=== PATIENT | female | born 1990 | race Hispanic/Latino ===

== ENCOUNTER 2022-03-03 08:13 | Emergency (ER) | payer OTHER ==
[~2022-03-03] VITALS: Ht 160 cm; Wt 82.1 kg
[~2022-03-03 08:13] MED LIST: CEPH500B PO; IBUP-2070 PO
[2022-03-03] MEDS ORDERED: PRED5TAB PO (08:39)
[2022-03-03] MEDS ORDERED: VALA10002 PO (08:39)
[2022-03-03 08:57] VITALS: BP 102/65
== END 2022-03-03 08:59 | disposition home or self-care (01) ==
LOC: EDH 08:13
DX: B02.9 Zoster without complications (principal); Z88.0 Allergy status to penicillin

== ENCOUNTER 2022-03-05 07:33 | Emergency (ER) | payer OTHER ==
[~2022-03-05] VITALS: Ht 160 cm; Wt 82.1 kg
[~2022-03-05 07:33] MED LIST changes: +PRED5TAB PO; +VALA10002 PO
[2022-03-05 07:36] VITALS: BP 121/77
[2022-03-05] MEDS ORDERED: TETRACAINE HCL 0.5% 4 ML OPHTH SOLN ONE (07:59)
[2022-03-05] MEDS ORDERED: FLUORESCEIN SODIUM 1 STRIP STRIP ONE (08:00)
[2022-03-05] MEDS ORDERED: TETRACAINE HCL 0.5% 15 ML OPHTH SOLN OP SCH (08:30)
[2022-03-05] MEDS ORDERED: FLUORESCEIN SODIUM 1 STRIP STRIP OP SCH (08:30)
[2022-03-05] MEDS ORDERED: GABA-533 PO (08:38)
[2022-03-05] MEDS ORDERED: MAXIOS OD (08:38)
== END 2022-03-05 09:00 | disposition home or self-care (01) ==
LOC: EDH 07:33
DX: B02.30 Zoster ocular disease, unspecified (principal); Z88.0 Allergy status to penicillin; Z79.899 Other long term (current) drug therapy

== ENCOUNTER 2022-03-19 02:33 | Observation (INO) | payer BC, OTHER ==
[~2022-03-19] VITALS: Ht 160 cm; Wt 82.1 kg
[2022-03-19] VITALS (21 sets, daily range): BP systolic 98–124; BP diastolic 58–87
[~2022-03-19 02:33] MED LIST changes: +GABA-533 PO; +MAXIOS OD
[2022-03-19] MEDS ORDERED: 0.9%NACL 1000ML 1,000 ML IV ONE (03:00)
[2022-03-19] MEDS ORDERED: ONDANSETRON 4MG INJ IVP ONE (03:00)
[2022-03-19] MEDS ORDERED: KETOROLAC 30MG VIAL (30MG/ML) IVP ONE (03:00)
[2022-03-19 03:34] LABS: BASOPHILS % (AUTO) 0.6 % (0.0-5.0); EOSINOPHILS % (AUTO) 1.5 % (0.0-8.0); HEMATOCRIT 38.9 % (36-48); LYMPHOCYTES % (AUTO) 36.1 % (21.0-51.0); MEAN CORPUSCULAR HEMOGLOBIN 31.3 pg (27.0-33.0); MEAN CORPUSCULAR HGB CONC 33.4 g/dL (32.0-36.0); MEAN CORPUSCULAR VOLUME 93.5 fL (79-99); MONOCYTES % (AUTO) 6.4 % (3.0-13.0); NEUTROPHILS % (AUTO) 55.3 % (40.0-77.0); PLATELET COUNT (AUTO) 229 K/uL (130-400); RED BLOOD CELL COUNT(AUTO) 4.16 MIL/uL (4.00-5.50); RED CELL DISTRIBUTION WIDTH 13.2 % (11.0-15.5); WHITE BLOOD COUNT (AUTO) 6.8 K/uL (4.8-10.8)
[2022-03-19 03:36] LABS: APPEARANCE,URINE CLEAR (CLEAR); BILIRUBIN,URINE NEGATIVE (NEGATIVE); COLOR,URINE LIGHT-YELLOW (YELLOW); GLUCOSE, URINE (UA) NEGATIVE (NEGATIVE); KETONES,URINE NEGATIVE (NEGATIVE); LEUKOCYTE ESTERASE ,URINE NEGATIVE Leu/uL (NEGATIVE); NITRATE,URINE NEGATIVE (NEGATIVE); OCCULT BLOOD,URINE NEGATIVE (NEGATIVE); PROTEIN,URINE NEGATIVE (NEGATIVE); UROBILINOGEN,URINE 0.2 mg/dL (0.2-1.0)
[2022-03-19 03:37] LABS: HCG,QUALITATIVE URINE NEGATIVE (NEGATIVE)
[2022-03-19] MEDS ORDERED: MORPHINE 4 MG SYG ONE (03:51)
[2022-03-19 03:52] LABS: CREATININE 0.8 mg/dL (0.5-1.5); POTASSIUM 3.4 mmol/L (3.5-5.1)
[2022-03-19 03:56] LABS: ALBUMIN 3.5 g/dL (3.5-5.0); TOTAL PROTEIN, SERUM 7.2 g/dL (6.0-8.3)
[2022-03-19] MEDS ORDERED: MORPHINE 4 MG SYG IVP ONE ×2 (04:00→04:30)
[2022-03-19] MEDS ORDERED: CEFTRIAXONE 1G VIAL IVP ONE (04:30)
[2022-03-19] MEDS ORDERED: HYDROMORPHONE 1 MG INJ IV PRN (05:00)
[2022-03-19] MEDS ORDERED: POTASSIUM CHLORIDE 10% ELIXIR 20 MEQ/15 ML UDCUP PO PRN (05:00)
[2022-03-19] MEDS ORDERED: POTASSIUM CHLORIDE 20MEQ/100ML 100 ML IV PRN (05:00)
[2022-03-19] MEDS ORDERED: MORPHINE 2 MG SYG IV PRN ×2 (05:00→09:30)
[2022-03-19] MEDS ORDERED: LIDOCAINE HCL-MPF 1% 2ML VIAL IV PRN (05:00)
[2022-03-19] MEDS ORDERED: ONDANSETRON 4MG INJ IV PRN (05:00)
[2022-03-19] MEDS: METRONIDAZOLE 500MG/100ML BAG 100 ML IVPB SCH ×5 (06:00→21:46)
[2022-03-19] MEDS: LEVOFLOXACIN 500 MG/D5W 100 ML 100 ML IV SCH (06:01)
[2022-03-19] MEDS: LACTATED RINGERS 1000ML 1,000 ML IV SCH ×2 (06:03→11:05)
[2022-03-19] MEDS ORDERED: BUPIVACAINE/PF 0.5% 30ML VIAL ONE (06:49)
[2022-03-19] MEDS ORDERED: ONDANSETRON 4MG INJ ONE (08:04)
[2022-03-19] MEDS ORDERED: SUCCINYLCHOLINE 200MG/10ML SYR ONE (08:04)
[2022-03-19] MEDS ORDERED: MIDAZOLAM HCL 1 MG/ML 2ML VIAL ONE (08:04)
[2022-03-19] MEDS ORDERED: GLYCOPYRROLATE 1 MG/5 ML SYRINGE ONE (08:04)
[2022-03-19] MEDS ORDERED: LIDOCAINE PF 100MG/5ML (2%) SYRINGE 5ML ONE (08:04)
[2022-03-19] MEDS ORDERED: PROPOFOL 10 MG/ML 20ML VIAL IV ONE (08:04)
[2022-03-19] MEDS ORDERED: NEOSTIGMINE 5MG/5ML SYR IV ONE (08:04)
[2022-03-19] MEDS ORDERED: DEXAMETHASONE SOD PHOSPHATE 10MG/ML 1ML VIAL ONE (08:04)
[2022-03-19] MEDS ORDERED: FENTANYL CITRATE PF 50 MCG/1 ML 2ML VIAL ONE ×2 (08:05→10:04)
[2022-03-19] MEDS ORDERED: ROCURONIUM 10MG/1ML SYR 10 MG/ML ML ONE (08:05)
[2022-03-19] MEDS: ENOXAPARIN SODIUM 40 MG/0.4 ML SYRINGE SQ SCH (09:00)
[2022-03-19] MEDS ORDERED: KETOROLAC 30MG VIAL (30MG/ML) ONE (09:03)
[2022-03-19] MEDS ORDERED: MEPERIDINE-PF 25 MG/ML SYG ONE ×2 (09:13→09:39)
[2022-03-19] MEDS ORDERED: ONDANSETRON 4MG INJ IVP PRN (09:30)
[2022-03-19] MEDS ORDERED: ACET-2079 PO (09:30)
[2022-03-19] MEDS ORDERED: ACETAMINOPHEN 325 MG TAB PO PRN (09:30)
[2022-03-19] MEDS ORDERED: ACETAMINOPHEN 650 MG SUPPOSITORY RC PRN (09:30)
[2022-03-19] MEDS ORDERED: LACTATED RINGERS 1000ML 1,000 ML IV SCH (09:30)
[2022-03-19] MEDS: FAMOTIDINE 20MG VIAL IV SCH ×2 (11:16→21:47)
[2022-03-19] MEDS: KCL 20 MEQ ERTAB PO PRN (13:41)
[2022-03-19] MEDS: HYDROCODONE/ACETAMINOPHEN 5/325 MG TAB PO PRN ×2 (16:25→22:03)
[2022-03-20 03:21] VITALS: BP 116/72
[2022-03-20] MEDS: HYDROCODONE/ACETAMINOPHEN 5/325 MG TAB PO PRN ×2 (04:06→12:39)
[2022-03-20] MEDS: LEVOFLOXACIN 500 MG/D5W 100 ML 100 ML IV SCH (04:33)
[2022-03-20] MEDS: METRONIDAZOLE 500MG/100ML BAG 100 ML IVPB SCH (05:51)
[2022-03-20 06:48] LABS: HEMATOCRIT 34.7 % (36-48); MEAN CORPUSCULAR HEMOGLOBIN 31.1 pg (27.0-33.0); MEAN CORPUSCULAR HGB CONC 32.6 g/dL (32.0-36.0); MEAN CORPUSCULAR VOLUME 95.6 fL (79-99); RED BLOOD CELL COUNT(AUTO) 3.63 MIL/uL (4.00-5.50); RED CELL DISTRIBUTION WIDTH 13.2 % (11.0-15.5); WHITE BLOOD COUNT (AUTO) 8.6 K/uL (4.8-10.8)
[2022-03-20 07:04] LABS: CREATININE 0.7 mg/dL (0.5-1.5); MAGNESIUM 2.1 mg/dL (1.80-2.40); POTASSIUM 3.6 mmol/L (3.5-5.1)
[2022-03-20 07:33] VITALS: BP 112/60
[2022-03-20] MEDS: FAMOTIDINE 20MG VIAL IV SCH (08:21)
[2022-03-20] MEDS: ENOXAPARIN SODIUM 40 MG/0.4 ML SYRINGE SQ SCH (08:21)
[2022-03-20] MEDS: KCL 20 MEQ ERTAB PO PRN (08:22)
[2022-03-20 12:29] VITALS: BP 111/72
[2022-03-20] MEDS ORDERED: BISACODYL 10 MG SUPP.RECT RC PRN (14:00)
[2022-03-20 16:40] VITALS: BP 100/65
== END 2022-03-20 17:55 | disposition home or self-care (01) ==
LOC: EDH 02:33 → INTOOBSV 04:56 → EDHIP 04:56 → WSH 10:45
PROVIDERS: ADMIT Internal Medicine; ATTEND Internal Medicine
DX: K81.0 Acute cholecystitis (principal); Z20.822 Contact with and (suspected) exposure to COVID-19; E87.6 Hypokalemia; Z79.899 Other long term (current) drug therapy; Z98.890 Other specified postprocedural states
CPT/HCPCS: 47562; 96376 ×2; 96365; 96366 ×2; 96375; 96368; 99284; 80053; 83690; 85025; 81003; 81025; 36415 ×2; 87635; 76705; 96372; 83735; 80048; 85027; G0378 ×27; A4663; J7030; A4600 ×2; A4215; J3490 ×9; J3010 ×2; J0330; J1100; J2710; J1956 ×3; J2001; J0696; J2250; J2704; J2405 ×3; J2270 ×2; J1885 ×2; J2175 ×2; A6206; C1769 ×3; A4649 ×3; J1650

== ENCOUNTER 2022-07-13 18:23 | Emergency (ER) | payer BC ==
[~2022-07-13] VITALS: Ht 160 cm; Wt 83.0 kg
[~2022-07-13 18:23] MED LIST changes: +ACET-2079 PO
[2022-07-13 20:22] LABS: HCG,QUALITATIVE URINE NEGATIVE (NEGATIVE)
[2022-07-13] MEDS ORDERED: FLUCONAZOLE 100 MG TAB PO ONE (20:30)
[2022-07-13 21:57] VITALS: BP 125/81
[2022-07-13 22:05] LABS: APPEARANCE,URINE CLEAR (CLEAR); BILIRUBIN,URINE NEGATIVE (NEGATIVE); COLOR,URINE COLORLESS (YELLOW); GLUCOSE, URINE (UA) NEGATIVE (NEGATIVE); KETONES,URINE 10 mg/dL (NEGATIVE); LEUKOCYTE ESTERASE ,URINE NEGATIVE Leu/uL (NEGATIVE); NITRATE,URINE NEGATIVE (NEGATIVE); OCCULT BLOOD,URINE NEGATIVE (NEGATIVE); PH,URINE 6.5 (5.0-8.0); PROTEIN,URINE NEGATIVE (NEGATIVE); UROBILINOGEN,URINE 0.2 mg/dL (0.2-1.0)
[2022-07-14] MEDS ORDERED: FAMC500T8 PO (15:24)
== END 2022-07-13 22:22 | disposition home or self-care (01) ==
LOC: EDH 18:23
DX: B37.31 Acute candidiasis of vulva and vagina (principal); Z88.0 Allergy status to penicillin; Z79.52 Long term (current) use of systemic steroids; Z79.899 Other long term (current) drug therapy
CPT/HCPCS: 81003; 81025; 87210; 87486; 87797

== ENCOUNTER 2022-07-14 14:35 | Emergency (ER) | payer BC ==
[~2022-07-14] VITALS: Ht 160 cm; Wt 83.0 kg
[2022-07-14 14:37] VITALS: BP 111/73
[2022-07-14] MEDS ORDERED: FAMC500T8 PO (15:24)
== END 2022-07-14 15:27 | disposition home or self-care (01) ==
LOC: EDH 14:35
DX: B02.9 Zoster without complications (principal); Z88.0 Allergy status to penicillin

== ENCOUNTER 2023-01-25 05:13 | Emergency (ER) | payer BC ==
[~2023-01-25] VITALS: Ht 160 cm; Wt 82.6 kg
[~2023-01-25 05:13] MED LIST changes: +FAMC500T8 PO; -GABA-533 PO; +GABA-534 PO
[2023-01-25 05:38] LABS: APPEARANCE,URINE CLEAR (CLEAR); BILIRUBIN,URINE NEGATIVE (NEGATIVE); COLOR,URINE COLORLESS (YELLOW); GLUCOSE, URINE (UA) NEGATIVE (NEGATIVE); HCG,QUALITATIVE URINE NEGATIVE (NEGATIVE); KETONES,URINE NEGATIVE (NEGATIVE); LEUKOCYTE ESTERASE ,URINE NEGATIVE Leu/uL (NEGATIVE); NITRATE,URINE NEGATIVE (NEGATIVE); OCCULT BLOOD,URINE NEGATIVE (NEGATIVE); PH,URINE 6.5 (5.0-8.0); PROTEIN,URINE NEGATIVE (NEGATIVE); UROBILINOGEN,URINE 0.2 mg/dL (0.2-1.0)
[2023-01-25 05:39] LABS: ADD UA MICROSCOPIC NO
[2023-01-25 05:47] LABS: BASOPHILS # (AUTO) 0.04 K/uL (0.00-0.20); BASOPHILS % (AUTO) 0.6 % (0.0-5.0); EOSINOPHILS # (AUTO) 0.06 K/uL (0.00-0.70); EOSINOPHILS % (AUTO) 0.9 % (0.0-8.0); HEMATOCRIT 42.7 % (36-48); IMMATURE GRANULOCYTE ABSOLUTE 0.01 K/uL (0-1); LYMPHOCYTES # (AUTO) 2.2 K/uL (1.0-4.8); LYMPHOCYTES % (AUTO) 34.5 % (21.0-51.0); MEAN CORPUSCULAR HEMOGLOBIN 31.1 pg (27.0-33.0); MEAN CORPUSCULAR HGB CONC 33.3 g/dL (32.0-36.0); MEAN CORPUSCULAR VOLUME 93.4 fL (79-99); MONOCYTES # (AUTO) 0.3 K/uL (0.1-1.0); MONOCYTES % (AUTO) 4.9 % (3.0-13.0); NEUTROPHILS # (AUTO) 3.8 K/uL (1.8-7.7); NEUTROPHILS % (AUTO) 58.9 % (40.0-77.0); PLATELET COUNT (AUTO) 253 K/uL (130-400); RED BLOOD CELL COUNT(AUTO) 4.57 MIL/uL (4.00-5.50); RED CELL DISTRIBUTION WIDTH 11.9 % (11.0-15.5); WHITE BLOOD COUNT (AUTO) 6.5 K/uL (4.8-10.8)
[2023-01-25 05:53] LABS: CREATININE 0.8 mg/dL (0.5-1.5); POTASSIUM 3.6 mmol/L (3.5-5.1)
[2023-01-25] MEDS ORDERED: METH-662 PO (07:47)
[2023-01-25] MEDS ORDERED: IBUP-2070 PO (07:47)
[2023-01-25 08:00] VITALS: BP 121/68; PULSE 68; RESP 16; O2SAT 98
== END 2023-01-25 08:06 | disposition home or self-care (01) ==
LOC: EDH 05:13
DX: S39.012A Strain of muscle, fascia and tendon of lower back, initial encounter (principal); Z79.624 Long term (current) use of inhibitors of nucleotide synthesis; Z88.0 Allergy status to penicillin; Z90.49 Acquired absence of other specified parts of digestive tract; Z79.52 Long term (current) use of systemic steroids; X58.XXXA Exposure to other specified factors, initial encounter; Y93.89 Activity, other specified; Y92.89 Other specified places as the place of occurrence of the external cause; Y99.8 Other external cause status
CPT/HCPCS: 36415; 80048; 81003; 81025; 83690; 85025; 87486; 87797

== ENCOUNTER 2024-07-08 01:17 | Emergency (ER) | payer SELFPAY ==
[~2024-07-08] VITALS: Ht 160 cm; Wt 92.5 kg
[~2024-07-08 01:17] MED LIST changes: +METH-662 PO
[2024-07-08 01:19] VITALS: TEMP 98.3
--- NOTE | 2024-07-08 01:51 | ERN ---
General Chief Complaint: Multiple Complaints Stated Complaint: C/O BACK PAIN, BLADDER PAIN, SOB, RIB PAIN Time Seen by MD: 01:36 History of Present Illness Initial Comments Mrs Mederos is a 33-year-old female with a significant past medical history of migraines who comes today with a chief complaint of right-sided flank pain with a sharp and radiates to the costal margin. Patient also reports dull pain in the left paraspinal region. Patient reports ongoing urinary symptoms of dysuria and discomfort for the last 2 weeks but has been managing with [id number] remedies do the labs of insurance coverage. She reports subjective fever, abdominal pain and intermittent vaginal discharge ovarian color coinciding with her menstrual cycle irregularities in oral contraceptive use. She also notes shortness of breath likely pain related and decreased oral intake due to GI upset Allergies: Coded Allergies: Penicillins (Unverified Allergy, Unknown, RASH, 07/08/24) HIVES AND ITCHING Home Meds Active Scripts Ibuprofen (Ibuprofen) 600 Mg Tablet, 600 MG PO Q6H PRN for PAIN, #40 TAB Prov:CECELIA BHAKTA MD 01/25/23 Methocarbamol (Robaxin) 750 Mg Tab, 750 MG PO TID PRN for back pain, #21 TAB Prov:CECELIA BHAKTA MD 01/25/23 Famciclovir (Famciclovir) 500 Mg Tablet, 500 MG PO TID for 7 Days, #21 TAB Prov:VELVET CAMARA NP 07/14/22 Acetaminophen with Codeine (Acetaminophen-Cod #3 Tablet) 1 Each Tablet, 1 EACH PO Q4HPRN, #20 TAB Prov:ARIADNA BERNSTEIN MD 03/19/22 Ori/Polymyx B Sulf/Dexameth (Maxitrol Ophth Susp) 20 Drop/Ml Opsus, 1 DROP OD BID for 7 Days, #30 DROP Prov:YAIMA HOGAN MD 03/05/22 Gabapentin (Gabapentin) 400 Mg Capsule, 400 MG PO BID PRN for PAIN LEVEL 1 TO 5 for 4 Days, #14 CAP Prov:YAIMA HOGAN MD 03/05/22 Prednisone (Prednisone) 5 Mg Tablet, 5 MG PO BID for 7 Days, #14 TAB Prov:YAIMA HOGAN MD 03/03/22 Valacyclovir HCl (Valtrex) 1,000 Mg Tablet, 1000 MG PO TID for 7 Days, #21 TAB Prov:YAIMA HOGAN MD 03/03/22 Cephalexin Monohydrate (Keflex) 500 Mg Cap, 500 MG PO BID for 5 Days, #10 CAP Prov:VARUN BAILEY MD 12/24/21 Ibuprofen (Ibuprofen) 600 Mg Tablet, 600 MG PO Q6H PRN for PAIN, #30 TAB Prov:VARUN BAILEY MD 12/24/21 Past Medical History Past Medical History: No Pertinent History Medical History Other: GALL STONES, SHINGLES Past Surgical History: Cholecystectomy Social History Social History: Negative, Lives with family, Other Female( History) History: Not Applicable LMP: Jun 19, 2024 : 1 Para: 0 Aborts: 1 ROS Dictation Constitutional: Subjective fever, chills, decreased oral intake, fatigue Eyes: Negative for injury, pain,redness, and discharge ENT: Negative for injury,pain or swelling Cardiovascular: Negative for chest pain, palpitations, and edema Respiratory: Positive for shortness of breath and attributed to pain Abdomen/GI: Positive for abdominal pain, nausea no vomiting or diarrhea Back: Negative for injury and pain : Positive for dysuria, positive for vaginal discharge, positive for flank pain positive for abdominal discomfort MS/Extremity: Negative for injury and deformity Skin: Negative for rash, and discoloration Neuro: Negative for headache, weakness, numbness, tingling, and seizure Psych: Negative for suicide ideation, homicidal ideation, and hallucinations Physical Exam Physical Exam Dictation General: Well-appearing female who is alert and oriented x3 uncomfortable due to pain Head/Face: Normocephalic, atraumatic Eyes: PERRL, EOMI, vision at baseline ENT: oral cavity clear, TMs clear, no signs of infection Neck: Trachea midline, supple, no nuchal rigidity Cardiovascular: RRR, normal S1/S2, No MRGs, no JVD Respiratory: CTAB, no respiratory distress, No rales or wheezes Abdomen: Soft mild tenderness in the bilateral lower quadrants in the right upper quadrant below the costal margin no guarding or rebound, positive CVA tenderness in the right. Skin: Warm, dry, normal turgor, no rash MS/Extremity: Pulses equal, no cyanosis, neurovascular intact, FROM Neuro: COAx4, GCS 15, strength 5/5, CN 2-12 intact, normal cerebellar exam, normal gait, Psych: Normal behavior, mood, and affect normal Results Laboratory and Microbiology Lab and Micro Result Laboratory Tests Test 07/08/24 01:26 07/08/24 01:50 Urine Color COLORLESS (YELLOW) Urine Appearance CLEAR (CLEAR) Urine pH 6.5 (5.0-8.0) Urine Specific [place] 1.001 (1.001-1.031) Urine Protein NEGATIVE mg/dL (NEGATIVE) Urine Glucose (UA) NEGATIVE mg/dL (NEGATIVE) Urine Ketones NEGATIVE mg/dL (NEGATIVE) Urine Occult Blood NEGATIVE (NEGATIVE) Urine Nitrate NEGATIVE (NEGATIVE) Urine Bilirubin NEGATIVE mg/dL (NEGATIVE) Urine Urobilinogen 0.2 mg/dL (0.2-1.0) Urine Leukocyte Esterase NEGATIVE Piter/uL Urine HCG, Qualitative NEGATIVE (NEGATIVE) White Blood Count 6.9 K/uL (4.8-10.8) Red Blood Count 4.08 MIL/uL (4.00-5.50) Hemoglobin 12.9 g/dL (12.0-16.0) Hematocrit 39.4 % (36-48) Mean Corpuscular Volume 96.6 fL (79-99) Mean Corpuscular Hemoglobin 31.6 pg (27.0-33.0) Mean Corpuscular Hemoglobin Concent 32.7 g/dL (32.0-36.0) Red Cell Distribution Width 12.1 % (11.0-15.5) Platelet Count 285 K/uL (130-400) Mean Platelet Volume 9.6 fL (7.5-10.5) Immature Granulocyte % (Auto) 0.1 % (0-1) Neutrophils (%) (Auto) 53.7 % (40.0-77.0) Lymphocytes (%) (Auto) 37.9 % (21.0-51.0) Monocytes (%) (Auto) 6.1 % (3.0-13.0) Eosinophils (%) (Auto) 1.6 % (0.0-8.0) Basophils (%) (Auto) 0.6 % (0.0-5.0) Neutrophils # (Auto) 3.7 K/uL (1.8-7.7) Lymphocytes # (Auto) 2.6 K/uL (1.0-4.8) Monocytes # (Auto) 0.4 K/uL (0.1-1.0) Eosinophils # (Auto) 0.11 K/uL (0.00-0.70) Basophils # (Auto) 0.04 K/uL (0.00-0.20) Absolute Immature Granulocyte (auto 0.01 K/uL (0-1) Nucleated Red Blood Cells 0.0 % (0.0-0.19) Sodium Level 137 mmol/L (136-145) Potassium Level 3.8 mmol/L (3.5-5.1) Chloride Level 104 mmol/L (101-111) Carbon Dioxide Level 27 mmol/L (21-32) Blood Urea Nitrogen 10 mg/dL (7-18) Creatinine 0.8 mg/dL (0.5-1.0) Glomerular Filtration Rate Calc 100 mL/min (>90) Random Glucose 105 mg/dL (70-105) Total Calcium 8.4 mg/dL (8.5-10.1) L Total Bilirubin 0.2 mg/dL (0.2-1.0) Aspartate Amino Transf (AST/SGOT) 14 U/L (10-37) Alanine Aminotransferase (ALT/SGPT) 13 U/L (12-78) Alkaline Phosphatase 45 U/L (50-136) L Total Protein 6.4 g/dL (6.0-8.3) Albumin 3.0 g/dL (3.5-5.0) L MDM Ms. Mederos came in with bilateral back pain around left and right costal margin as well as abdominal pain. Patient did have a CT which was normal as she had no acute findings including no evidence of bowel obstruction and a normal appendix. Patient was given initially antibiotics thought to have a UTI but urine was unremarkable. Patient at this time has been given pain medication that has helped improve her pain. We will advise patient to follow up with your primary care doctor for further evaluation and care MDM: Differential diagnosis: Back pain/musculoskeletal pain Rationale: Tests considered and ordered secondary to shared decision making include: Previous outside records reviewed: Old ER visits. Risk of complication and/or morbidity or mortality of patient management: None Medications-Per medication reconciliation Need for hospitalization: Patient does not meet criteria for hospitalization. Need for emergency major/minor surgery: No There are no social concerns with this patient. Prescription drug management Prescriptions will include symptomatic care Patient's prior external medical records from other ER visits were reviewed by me as indicated. Prior testing and results from previous visits were reviewed. Prior tests were taken into account with medical decision making and resource utilization, independent historian/historians were used to obtain complete medical history. I independently interpreted the test that were performed, results were reviewed by me and considered findings on radiology if ordered. Medical management and examination interpretation discussions were had by me with other qualified healthcare professionals as indicated for the patient's care. ED Course Orders Procedure Category Date Status Time Urinalysis Profile LAB 07/08/24 Complete 01:34 ,Urine Test LAB 07/08/24 Complete 01:34 Comprehensive LAB 07/08/24 Complete Metabolic Panel 01:44 Chlamydia & Gc Pcr VALENTINA 07/08/24 In Process 01:44 Ceftriaxone 1g Vial PHA 07/08/24 Complete (Rocephine 1g Inj) 02:00 0.9%Nacl 1000ml (Ns PHA 07/08/24 Complete 1000ml) 02:00 Ondansetron 4mg PHA 07/08/24 Complete Tablet (Zofran 4mg 02:00 Cbc With Differential LAB 07/08/24 Complete 01:44 Ct Abdomen/Pelvis CT 07/08/24 Taken W/Contrast 03:03 Iohexol (Omnipaque) PHA 07/08/24 Complete 03:42 Ketorolac PHA 07/08/24 Complete Tromethamine 15mg/Ml 05:00 Hydrocodone/Apap PHA 07/08/24 Complete 5/325 ([place] 5/325mg) 05:00 Current Medications Medications (Trade) Dose Ordered Sig/Santa Route PRN Reason Start Time Stop Time Status Last Admin Dose Admin Acetaminophen/ Hydrocodone Bitart (NORco 5/325MG) 1 tab ONCE ONCE PO 07/08/24 05:00 07/08/24 05:01 DC 07/08/24 05:07 Ceftriaxone Sodium (ROCEphine 1G INJ) 1 gm ONCE ONCE IVPB 07/08/24 02:00 07/08/24 02:31 DC 07/08/24 02:37 Iohexol (Omnipaque) 35,000 mg STK-MED ONCE IV 07/08/24 03:42 07/08/24 03:42 DC Ketorolac Tromethamine (toRADol) 15 mg ONCE ONCE IV 07/08/24 05:00 07/08/24 05:01 DC 07/08/24 05:07 Ondansetron HCl (zoFRAN 4MG TABLET) 4 mg ONCE ONCE PO 07/08/24 02:00 07/08/24 02:01 DC 07/08/24 02:37 Sodium Chloride 1,047 ml @ 349 mls/hr ONCE ONCE IV 07/08/24 02:00 07/08/24 04:59 DC 07/08/24 02:37 Vital Signs Date Time Temp Pulse Resp B/P (MAP) Pulse Ox O2 Delivery O2 Flow Rate FiO2 07/08/24 01:19 98.2 79 20 121/88 98 Room Air DX & DISP Disposition: Discharge Departure Impression: Primary Impression: Strain of lumbar paraspinal muscle Condition: Stable Additional Instructions: Please follow up with your primary care physician for your back pain. Your urine and labs not show any acute pathology. CT of your abdomen and pelvis also is without any acute pathological finding. Consider conservative treatment for your back pain. If your back pain worsens, you develop a fever or any other alarming symptoms please come back to the emergency department immediately. Please establish with a primary care physician in the next 24-72 hours Referrals: KAYLIE WHITMAN (PCP) ARIANNA PAYAN MD Jul 08, 2024 01:51
[2024-07-08 01:58] LABS: BASOPHILS # (AUTO) 0.04 K/uL (0.00-0.20); BASOPHILS % (AUTO) 0.6 % (0.0-5.0); EOSINOPHILS # (AUTO) 0.11 K/uL (0.00-0.70); EOSINOPHILS % (AUTO) 1.6 % (0.0-8.0); HEMATOCRIT 39.4 % (36-48); IMMATURE GRANULOCYTE ABSOLUTE 0.01 K/uL (0-1); LYMPHOCYTES # (AUTO) 2.6 K/uL (1.0-4.8); LYMPHOCYTES % (AUTO) 37.9 % (21.0-51.0); MEAN CORPUSCULAR HEMOGLOBIN 31.6 pg (27.0-33.0); MEAN CORPUSCULAR HGB CONC 32.7 g/dL (32.0-36.0); MEAN CORPUSCULAR VOLUME 96.6 fL (79-99); MONOCYTES # (AUTO) 0.4 K/uL (0.1-1.0); MONOCYTES % (AUTO) 6.1 % (3.0-13.0); NEUTROPHILS # (AUTO) 3.7 K/uL (1.8-7.7); NEUTROPHILS % (AUTO) 53.7 % (40.0-77.0); PLATELET COUNT (AUTO) 285 K/uL (130-400); RED BLOOD CELL COUNT(AUTO) 4.08 MIL/uL (4.00-5.50); RED CELL DISTRIBUTION WIDTH 12.1 % (11.0-15.5); WHITE BLOOD COUNT (AUTO) 6.9 K/uL (4.8-10.8)
[2024-07-08 02:01] LABS: APPEARANCE,URINE CLEAR (CLEAR); BILIRUBIN,URINE NEGATIVE (NEGATIVE); COLOR,URINE COLORLESS (YELLOW); GLUCOSE, URINE (UA) NEGATIVE (NEGATIVE); KETONES,URINE NEGATIVE (NEGATIVE); LEUKOCYTE ESTERASE ,URINE NEGATIVE Leu/uL (NEGATIVE); NITRATE,URINE NEGATIVE (NEGATIVE); OCCULT BLOOD,URINE NEGATIVE (NEGATIVE); PH,URINE 6.5 (5.0-8.0); PROTEIN,URINE NEGATIVE (NEGATIVE); UROBILINOGEN,URINE 0.2 mg/dL (0.2-1.0)
[2024-07-08 02:02] LABS: ADD UA MICROSCOPIC NO; HCG,QUALITATIVE URINE NEGATIVE (NEGATIVE)
[2024-07-08 02:08] LABS: CREATININE 0.8 mg/dL (0.5-1.0); POTASSIUM 3.8 mmol/L (3.5-5.1)
[2024-07-08 02:13] LABS: BILIRUBIN,TOTAL 0.2 mg/dL (0.2-1.0); TOTAL PROTEIN, SERUM 6.4 g/dL (6.0-8.3)
[2024-07-08] MEDS: 0.9%NACL 1000ML 1,047 ML IV ONE (02:37)
[2024-07-08] MEDS: ondanSETRON 4MG TABLET PO ONE (02:37)
[2024-07-08] MEDS: cefTRIAXone 1G VIAL IVPB ONE (02:37)
[2024-07-08] MEDS ORDERED: IOHEXOL 350 MG/ML 100ML INFUS..BTL IV ONE (03:42)
[2024-07-08] MEDS: ketOROlac 15MG/ML VIAL (15MG/ML) IV ONE (05:07)
[2024-07-08] MEDS: HYDROcodone/APAP 5/325 1 TAB TABLET PO ONE (05:07)
[2024-07-08 05:31] VITALS: BP 116/79; PULSE 66; RESP 18; O2SAT 99
--- NOTE | 2024-07-08 08:02 | HMCIMG ---
CT ABDOMEN/PELVIS W/CONTRAST HISTORY: Abdominal pain COMPARISON: None TECHNIQUE: Multiple sequential axial images of the abdomen and pelvis were obtained from the dome of the diaphragm through symphysis pubis. Patient was given 100 cc of Omnipaque through intravenous route. Oral contrast was not given. FINDINGS: No pleural effusion is seen bilaterally. There is no evidence of parenchymal disease or pulmonary nodule of the visualized lower lungs. Degenerative changes of the thoracolumbar spine are present. The heart is not enlarged. Postcholecystectomy changes are seen. The liver, spleen, adrenal glands and pancreas are unremarkable. There is no evidence of hydronephrosis bilaterally. No evidence of renal stone is seen. Fecal material is seen in the colon. There are normal size retroperitoneal and mesenteric lymph nodes. No ascites is seen. No CT evidence of acute appendicitis is seen. Pelvic sidewalls are symmetric bilaterally. Bladder is well distended without wall thickening. IMPRESSION: 1. No acute findings. CT was performed with one or more following dose reduction techniques: automated exposure control, adjustment of the mA and kv according to patient's size, or use of a iterative reconstruction technique.
== END 2024-07-08 05:50 | disposition home or self-care (01) ==
LOC: EDH 01:17
DX: S39.012A Strain of muscle, fascia and tendon of lower back, initial encounter (principal); Z79.52 Long term (current) use of systemic steroids; Z79.624 Long term (current) use of inhibitors of nucleotide synthesis; Z88.0 Allergy status to penicillin; Z90.49 Acquired absence of other specified parts of digestive tract; X58.XXXA Exposure to other specified factors, initial encounter; Y93.89 Activity, other specified; Y92.89 Other specified places as the place of occurrence of the external cause; Y99.8 Other external cause status
CPT/HCPCS: 99285; 74177; 96374; 96375; 80053; 85025; 87491; 87591; 81003; 81025; 36415; Q0162; J1885; J7030; J0696; Q9967